=== PATIENT | male | born 2000 | race Caucasian/White ===

== ENCOUNTER → 2021-08-31 12:44 | Emergency (ER) | payer SELFPAY ==
--- NOTE | 2021-08-31 12:49 | ED_ITS ---
HPI - Extremity Injury (Upper) General Stated Complaint: INJURED FINGER Time Seen by Provider: 08/31/21 12:49 Source: patient and RN notes reviewed Discharge Plan Discharge Follow-up/Referrals: PHYSICIAN,SUPER[facility] [Primary Care Provider] -
== END | disposition left against medical advice (07) ==
LOC: EXPGLEN 12:47
PROVIDERS: Emergency Provider Nurse Practitioner Family
DX: Z53.21 Procedure and treatment not carried out due to patient leaving prior to being seen by health care provider (principal)
CPT/HCPCS: 99199